=== PATIENT | male | born 1995 | race Caucasian/White ===

== ENCOUNTER 2017-09-28 05:53 | Emergency (ER) | payer OTHER ==
[~2017-09-28 05:53] MED LIST: ASPI-696; KEPRA
[2017-09-28 06:00] VITALS: BP 150/100
[2017-09-28] MEDS ORDERED: LISI-424 PO (06:29)
[2017-09-28] MEDS ORDERED: ACETAMINOPHEN 325 MG TABLET PO ONE (09:30)
== END 2017-09-28 09:13 | disposition home or self-care (01) ==
LOC: ED 09:07
DX: F10.120 Alcohol abuse with intoxication, uncomplicated (principal); I10 Essential (primary) hypertension
CPT/HCPCS: 99283